=== PATIENT | female | born 1960 | race American Indian/Alaskan Native ===

== ENCOUNTER 2016-08-13 14:26 | Outpatient (CLI) | payer OTHER ==
--- NOTE | 2016-08-13 16:13 | Mammography Report ---
Bilateral mammogram and bilateral breast ultrasound: Bilateral compression images are obtained for bilateral asymmetry is identified on baseline screening mammogram. In the lateral left breast there is a persistent 12 mm low density and well-circumscribed nodule. No calcifications identified. There is no ultrasound correlation for this finding. A couple small benign-appearing cysts are noted in the left breast. There is a partially imaged circumscribed nodule in the posterior medial right breast which appears to correspond to the finding on screening mammography. Imaging in the 6:00 location demonstrates a circumscribed anechoic 9 mm nodule. This would appear to correspond. Several other smaller anechoic nodules are noted near the same region. No solid lesions. Impressions: 1. Multiple small right breast cysts. No suspicious finding. 2. Low suspicion mammographic nodule in the left breast at 9:00 with no ultrasound correlation. Recommendations: 6 month followup left breast mammogram to confirm stability. BI-RADS CATEGORY: 3 = Probably benign ACR BI-RADS MAMMOGRAPHIC CODES: 0 = Needs additional imaging evaluation; 1 = Negative; 2 = Benign; 3 = Probably benign; 4 = Suspicious; 5 = Malignant; 6 = Known biopsy-proven malignancy COMMENT: 1. Dense breast tissue, i.e., adenosis, fibrocystic changes, etc., may obscure an underlying neoplasm. 2. Approximately 10% of cancers are not detected with mammography. 3. A negative mammography report should not delay biopsy if a clinically suspicious mass is present.
== END 2016-08-13 14:27 | disposition home or self-care (01) ==
LOC: MAMMO 14:26
PROVIDERS: ATTEND Family Medicine
DX: N60.01 Solitary cyst of right breast (principal); N60.02 Solitary cyst of left breast; N63 Unspecified lump in breast
CPT/HCPCS: 76642; G0204; 77066

== ENCOUNTER 2017-08-12 14:21 | Outpatient (CLI) | payer OTHER ==
--- NOTE | 2017-08-12 15:38 | Ultrasound Report ---
Bilateral followup mammogram and sonogram nodule upper outer left breast: Compared to 08/13/16. CAD study utilized. Findings: Scattered glandular parenchyma bilaterally. Benign density right breast without interval change. There is suspicion of slight increase in size of the nodule noted at the upper outer posterior left breast compared to previous study. Sonographic examination disease well defined circumscribed oval isoechoic mass measuring 0.5 cm in diameter at 2:00 position 8 cm from nipple probably corresponding to the nodule. Appears benign. Impression: Probably benign mass. Six-month followup with mammogram and sonogram recommended. BI-RADS CATEGORY: 3 = Probably benign ACR BI-RADS MAMMOGRAPHIC CODES: 0 = Needs additional imaging evaluation; 1 = Negative; 2 = Benign; 3 = Probably benign; 4 = Suspicious; 5 = Malignant; 6 = Known biopsy-proven malignancy COMMENT: 1. Dense breast tissue, i.e., adenosis, fibrocystic changes, etc., may obscure an underlying neoplasm. 2. Approximately 10% of cancers are not detected with mammography. 3. A negative mammography report should not delay biopsy if a clinically suspicious mass is present. COMMENT: Patient follow-up letters are generated in [employer].
== END 2017-08-12 14:22 | disposition home or self-care (01) ==
LOC: MAMMO 14:21
PROVIDERS: ATTEND Family Medicine
DX: R92.8 Other abnormal and inconclusive findings on diagnostic imaging of breast (principal); F17.210 Nicotine dependence, cigarettes, uncomplicated
CPT/HCPCS: 77066

== ENCOUNTER 2018-05-05 13:49 | Outpatient (CLI) | payer OTHER ==
--- NOTE | 2018-05-05 16:05 | Mammography Report ---
LEFT DIGITAL DIAGNOSTIC MAMMOGRAM with CAD: 05/05/18 13:49:00 CLINICAL: Follow-up mass. COMPARISON:08/12/17, 08/13/16 and 02/06/16 FINDINGS: The previously described outer mass has partially circumscribed and partially indistinct margins and measures approximately 1.8 cm maximum. It is stable in size. No other mass, architectural distortion or suspicious calcifications. Ultrasound of the outer left breast was performed and demonstrated an oval hyperechoic superficial mass at 3 o'clock 6 cm from the nipple. It correlates with the position of the mammographic mass but is smaller and measures only 6 x 3 x 4 mm. A similar hyperechoic mass at 12 o'clock 8 cm from the nipple measures 7 x 4 x 6 mm. A lymph node with central echogenic fat measures 4 x 3 x 3 mm. IMPRESSION: Benign mammographic and ultrasound masses.No suspicious finding. BI-RADS CATEGORY: 2 -- Benign RECOMMENDATION: Return to routine mammographic screening. ACR BI-RADS MAMMOGRAPHIC CODES: 0 = Needs additional imaging evaluation; 1 = Negative; 2 = Benign; 3 = Probably benign; 4 = Suspicious; 5 = Malignant; 6 = Known biopsy-proven malignancy COMMENT: 1. Dense breast tissue, i.e., adenosis, fibrocystic changes, etc., may obscure an underlying neoplasm. 2. Approximately 10% of cancers are not detected with mammography. 3. A negative mammography report should not delay biopsy if a clinically suspicious mass is present. COMMENT: Patient follow-up letters are generated by our [employer] application.
== END 2018-05-05 13:50 | disposition home or self-care (01) ==
LOC: MAMMO 13:49
PROVIDERS: ATTEND Family Medicine
DX: R92.8 Other abnormal and inconclusive findings on diagnostic imaging of breast (principal); I10 Essential (primary) hypertension; Z87.891 Personal history of nicotine dependence